=== PATIENT | female | born 2000 | race Caucasian/White ===

== ENCOUNTER 2021-02-22 06:00 | Outpatient (RCR) | payer MEDICAID, SELFPAY | END 2021-03-24 23:59 | disposition home or self-care (01) | LOC: MOT 06:00 | PROVIDERS: PCP Nurse Practitioner Family; Referring Provider Family Medicine; Visit Provider Family Medicine | DX: F84.0 Autistic disorder (principal); F98.4 Stereotyped movement disorders | CPT/HCPCS: 97165; 97530 ==

== ENCOUNTER → 2022-10-05 17:15 | Outpatient (BNVA) | payer MEDICAID, SELFPAY | PROVIDERS: Visit Provider Emergency Medicine | DX: J02.9 Acute pharyngitis, unspecified (principal); R50.9 Fever, unspecified; Z20.818 Contact with and (suspected) exposure to other bacterial communicable diseases | CPT/HCPCS: 87071; 87880 ==

== ENCOUNTER → 2024-05-20 10:24 | Outpatient (BNVA) | payer MEDICAID, SELFPAY | PROVIDERS: Visit Provider Nurse Practitioner | DX: K59.00 Constipation, unspecified (principal) | CPT/HCPCS: 74018 ==

== ENCOUNTER 2024-05-21 09:37 | Emergency (ER) | payer MEDICAID, SELFPAY ==
[2024-05-21 10:05] VITALS: BP 105/79; PULSE 80; RESP 16; TEMP 37.3; O2SAT 99; BMI 18.8
--- NOTE | 2024-05-21 11:32 | CT_ITS ---
WS: [id number] CT ABDOMEN PELVIS TECHNIQUE: Contrast-enhanced CT of the abdomen and pelvis with coronal and sagittal reformatted image s. CLINICAL INFORMATION: abd pain COMPARISON: None. DLP: 364.[address] scans at [facility] use at least one of these dose optimization techniques: automated e xposure control; mA and/or kV adjustment per patient size (includes targeted exams where dose is matc hed to clinical indication); or iterative reconstruction. FINDINGS: Diffuse dense constipation with colonic distention extending from the cecum to the rectosigmoid. Diff use distention of the rectosigmoid. No visualized colonic stricture. Mild proximal dilatation of smal l bowel with a few air-fluid levels. Pectus excavatum. Trace RIGHT pleural fluid. Bibasilar atelectas is. Normal liver. Normal portal vein and splenic vein. Normal spleen. Normal caliber abdominal aorta. Normal renal parenchymal enhancement. No hydronephrosis. Mild lumbar curve convex LEFT. CT/CT abdomen pelvis w con* [id number] IMPRESSION: 1. Diffuse marked dense pancolonic constipation extending from the cecum to th e rectosigmoid. 2. A few air-fluid levels small bowel in the mid abdomen. 3. Trace RIGHT pleural fluid. Slight bibasilar atelectasis. 4. No other acute findings.
--- NOTE | 2024-05-21 11:32 | W.ED.ABDPA2 ---
HPI - Abdominal Pain General: Chief Complaint: Abdominal Pain Stated Complaint: BM issues Time Seen by Provider: 05/21/24 09:46 History of Present Illness: 23-year-old nonverbal female presents emergency room with her guardians. She has been constipated lately they recently increased Risperdal and he noted worsening of constipation she always had some problems but usually not to this extent. She seems to be very uncomfortable he said they have tried lactulose they are prescribed she taken 5 doses with no results. She seems more bloated. She had a little low-grade fever when she arrived here but has not had significant fever at home. They have not noticed any other issues cough or apparent shortness of breath. She usually wears depends. Did not notice any foul-smelling urine. Associated Symptoms: Reports bloating; Denies fever(s) Related Data Home Medications Medication Instructions Recorded Confirmed cetirizine 10 mg capsule (All Day 10 mg PO DAILY 08/29/19 05/21/24 Allergy (cetirizine)) guanfacine 1 mg tablet,extended 1 mg PO BID 03/14/24 05/21/24 release 24 hr (Intuniv ER) oxcarbazepine 300 mg/5 mL (60 150 mg PO BID 03/14/24 05/21/24 mg/mL) oral suspension (Trileptal) medroxyprogesterone 150 mg/mL 150 mg IM .Q90D 05/21/24 05/21/24 intramuscular syringe mirtazapine 7.5 mg tablet 7.5 mg PO DAILY 05/21/24 05/21/24 multivitamin 1 tab PO DAILY 05/21/24 05/21/24 risperidone 1 mg tablet 1 mg PO BID 05/21/24 05/21/24 Previous Rx's Medication Instructions Recorded fexofenadine 60 mg-pseudoephedrine 1 tab PO Q12H PRN sinus symptoms 03/09/24 ER 120 mg tablet,ext.release,12 hr 14 days #30 tabs (Kathy-D 12 Hour) lactulose 10 gram/15 mL oral See Rx Instructions PO DAILY PRN 05/20/24 solution constipation #250 mL Allergies Allergy/AdvReac Type Severity Reaction Status Date / Time No Known Allergies Allergy Verified 05/21/24 10:15 Review of Systems General: Reports: ROS unobtainable due to mental status (Baseline nonverbal, minimal review of systems obtained from parents) Const: Denies: fever(s) Resp: Denies: dyspnea, non-productive cough or chest congestion GI: Reports: abdominal pain and bloating PFSH ED PFSH: Social History Smoking and tobacco/nicotine status: never used tobacco/nicotine Second hand smoke exposure: No Alcohol intake: never Substance/Drug Use: never Physical Exam HENMT: COMMON NORMALS: normocephalic, atraumatic and hearing grossly normal bilaterally HEAD & SCALP: normocephalic and atraumatic Resp: COMMON NORMALS: normal respiratory effort, No retractions, No use of accessory muscles and clear to auscultation bilaterally AUSCULTATION: clear to auscultation bilaterally Cardio: COMMON NORMALS: regular rate, regular rhythm and No murmurs present (Cardio) RATE: regular rate RHYTHM: regular rhythm GI: COMMON NORMALS: No hepatosplenomegaly present AUSCULTATION: Yes normoactive bowel sounds PALPATION: Yes Tenderness to palpation present (GI), No Guarding due to palpation present (GI) and Yes No hepatosplenomegaly present Extremity: COMMON NORMALS: normal to inspection, capillary refill normal, no clubbing, cyanosis or edema, no calf tenderness and no pedal edema Skin: COMMON NORMALS: no rashes or lesions noted GENERAL SKIN EXAM: no rashes or lesions noted Course Vital Signs: Vital signs: Vital Signs Temperature 99.2 F 05/21/24 10:05 Pulse Rate 72 05/21/24 17:17 Respiratory Rate 16 05/21/24 10:05 Blood Pressure 112/79 05/21/24 17:17 Pulse Oximetry 99 05/21/24 17:17 Oxygen Delivery Me thod Room Air 05/21/24 10:05 MDM - Abdominal Pain Medical Decision Making Patient with good results with the enema. She had a couple of bowel movements since and some large. Discussed with the caregivers will discharge her home can continue lactulose to further relieve the constipation. Recommend they wait till tomorrow to resume she is already had several doses and has been bloating likely those doses will continue to cause some stimulation and may continue to cause bowel movements through the evening if they find that it does not then they can resume the lactulose in the morning. Return if she has further problems follow-up with primary care Medical Records I reviewed the patient's medical records. Lab Data I reviewed the patient's lab results. 05/21/24 11:57 05/21/24 11:57 Labs/Radiology: Radiology Impressions Abdomen/Pelvis CT 05/21/24 11:32 IMPRESSION: 1. Diffuse marked dense pancolonic constipation extending from the cecum to the rectosigmoid. 2. A few air-fluid levels small bowel in the mid abdomen. 3. Trace RIGHT pleural fluid. Slight bibasilar atelectasis. 4. No other acute findings. Laboratory Results WBC 6.59 10^3/uL (3.29-11.43) 05/21/24 11:57 RBC 4.47 10^6/uL (3.85-5.65) 05/21/24 11:57 Hgb 13.20 g/dL (11.27-16.99) 05/21/24 11:57 Hct 39.5 % (36-47) 05/21/24 11:57 MCV 88.4 fl (85-98) 05/21/24 11:57 MCH 29.5 pg (27-33) 05/21/24 11:57 MCHC 33.4 g/dL (30-55) 05/21/24 11:57 RDW 13.0 % (12.1-15.1) 05/21/24 11:57 Plt Count 204 10^3/cmm (157-399) 05/21/24 11:57 MPV 10.2 fL (7.4-10.4) 05/21/24 11:57 Neut % (Auto) 51.0 % 05/21/24 11:57 Lymph % (Auto) 39.6 % 05/21/24 11:57 [place] % (Auto) 7.4 % 05/21/24 11:57 Eos % (Auto) 0.9 % 05/21/24 11:57 Baso % (Auto) 0.9 % 05/21/24 11:57 Neut # (Auto) 3.36 10^3/uL (1.8-7.7) 05/21/24 11:57 Lymph # (Auto) 2.6 10^3/uL (0.8-4.8) 05/21/24 11:57 [place] # (Auto) 0.5 10^3/uL (0.2-0.9) 05/21/24 11:57 Eos # (Auto) 0.1 10^3/uL (0.0-0.8) 05/21/24 11:57 Baso # (Auto) 0.1 10^3/uL (0.0-0.1) 05/21/24 11:57 Nucleated RBC % (auto) 0 % 05/21/24 11:57 Nucleated RBCs # 0.0 /100WBC 05/21/24 11:57 Sodium 139 mmol/L (136-145) 05/21/24 11:57 Potassium 4.4 mmol/L (3.5-5.1) 05/21/24 11:57 Chloride 107 mmol/L (98-107) 05/21/24 11:57 Carbon Dioxide 22 mmol/L (22-29) 05/21/24 11:57 Anion Gap 14.4 (5-19) 05/21/24 11:57 BUN 12 mg/dL (6-20) 05/21/24 11:57 Creatinine 0.5 mg/dL (0.5-0.9) 05/21/24 11:57 GFR Calculation 152.9 mL/min (90-130) H 05/21/24 11:57 Glucose 90 mg/dL (65-115) 05/21/24 11:57 Calculated Osmolality 287 mOsm/kg (285-295) 05/21/24 11:57 Calcium 9.0 mg/dL (8.5-10.5) 05/21/24 11:57 Total Bilirubin 0.3 mg/dL (0.15-1.2) 05/21/24 11:57 AST 11 U/L (0-32) 05/21/24 11:57 ALT 9 U/L (0-33) 05/21/24 11:57 Alkaline Phosphatase 46 U/L (35-105) 05/21/24 11:57 Total Protein 6.5 g/dL (6.6-8.7) L 05/21/24 11:57 Albumin 4.4 g/dL (3.5-5.2) 05/21/24 11:57 Globulin 2.1 g/dL (1.3-4.6) 05/21/24 11:57 Lipase 20 U/L (13-60) 05/21/24 11:57 Urine Color Yellow (Yellow) 05/21/24 13:27 Urine Appearance Clear (CLEAR) 05/21/24 13:27 Urine pH 6.5 (5-7) 05/21/24 13:27 Ur Specific [place] 1.032 (1.005-1.030) H 05/21/24 13:27 Urine Protein Negative (Negative) 05/21/24 13:27 Urine Glucose (UA) Negative (Normal) 05/21/24 13:27 Urine Ketones Trace (Negative) 05/21/24 13:27 Urine Blood Negative (Negative) 05/21/24 13:27 Urine Nitrate Negative (Negative) 05/21/24 13:27 Urine Bilirubin Negative (Negative) 05/21/24 13:27 Urine Urobilinogen 1.0 mg/dL (Negative) 05/21/24 13:27 Ur Leukocyte Esterase Negative (Negative) 05/21/24 13:27 Urine RBC 0-2 /hpf (0-2) 05/21/24 13:27 Urine WBC 0-5 /hpf (0-5) 05/21/24 13:27 Ur Squamous Epith Cells 0-5 /hpf (0-5) 05/21/24 13:27 Amorphous Sediment Not Reportable 05/21/24 13:27 Urine Bacteria None seen /hpf (NONE) 05/21/24 13:27 Hyaline Casts 3.71 /lpf 05/21/24 13:27 All radiology interpretation(s) finalized by discharge Discharge Plan Discharge Patient Disposition: Home Clinical Impression: Constipation Condition: Stable Prescriptions: No Action All Day Allergy (cetirizine) 10 mg capsule 10 mg PO DAILY fexofenadine-pseudoephedrine [Kathy-D 12 Hour] 60-120 mg tablet extended release 12 hr 1 tab PO Q12H PRN (Reason: sinus symptoms) 14 Days Qty: 30 0RF lactulose 10 gram/15 mL solution See Rx Instructions PO DAILY PRN (Reason: constipation) Qty: 250 0RF Rx Instructions: May give 15mls every 2 hours until she has a BM then discontinue guanfacine [Intuniv ER] 1 mg tablet extended release 24 hr 1 mg PO BID oxcarbazepine [Trileptal] 300 mg/5 mL (60 mg/mL) suspension 150 mg PO BID multivitamin Tablet 1 tab PO DAILY risperidone 1 mg tablet 1 mg PO BID medroxyprogesterone 150 mg/mL syringe 150 mg IM .Q90D mirtazapine 7.5 mg tablet 7.5 mg PO DAILY Discharge Orders: Discharge ED (Routine); Ordered 05/21/24 Ordered By: Vinay Khanna Discharge Diet: Full LIquid Discharge Activity: Resume usual activity Patient Instructions: Constipation (ED), Opioid Safety, Pain Management Activity Restrictions/Additional Instructions: Thank you for choosing [facility] for your healthcare needs today. It is very important that you follow up as instructed or that you return to the Emergency Department should you have concerns or if your condition changes or worsens in any way. You are seen today for constipation. He did get some improvement with enema. Recommend you continue using the lactulose the medicine will probably be more effective after the enema today. Coding Level of Care Code ED Occupational Therapy Director for [facility] Dong
[2024-05-21 12:26] LABS: Basophils # 0.1 10^3/uL (0.0-0.1); Basophils % 0.9 %; Eosinophils # 0.1 10^3/uL (0.0-0.8); Eosinophils % 0.9 %; Hematocrit 39.5 % (36-47); Lymphocytes # 2.6 10^3/uL (0.8-4.8); Lymphocytes % 39.6 %; Mean Corpuscular HGB Conc 33.4 g/dL (30-55); Mean Corpuscular Hemoglobin 29.5 pg (27-33); Mean Corpuscular Volume 88.4 fl (85-98); Mean Platelet Volume 10.2 fL (7.4-10.4); Monocytes # 0.5 10^3/uL (0.2-0.9); Monocytes % 7.4 %; Neutrophils # 3.36 10^3/uL (1.8-7.7); Nucleated Red Blood Cells % 0 %; Platelet Count 204 10^3/cmm (157-399); Red Blood Count 4.47 10^6/uL (3.85-5.65); White Blood Count 6.59 10^3/uL (3.29-11.43)
[2024-05-21 12:36] LABS: Alanine Aminotransferase 9 U/L (0-33); Albumin Level 4.4 g/dL (3.5-5.2); Alkaline Phosphatase 46 U/L (35-105); Anion Gap 14.4 (5-19); Aspartate Amino Transferase 11 U/L (0-32); Blood Urea Nitrogen 12 mg/dL (6-20); Carbon Dioxide 22 mmol/L (22-29); Chloride 107 mmol/L (98-107); Creatinine Clr Calc Pharmacy 134.8664; Globulin 2.1 g/dL (1.3-4.6); Glomerular Filtration Rate 152.9 mL/min (90-130); Glucose 90 mg/dL (65-115); Lipase 20 U/L (13-60); Osmolality Calculated 287 mOsm/kg (285-295); Potassium 4.4 mmol/L (3.5-5.1); Sodium 139 mmol/L (136-145); Total Bilirubin 0.3 mg/dL (0.15-1.2); Total Protein 6.5 g/dL (6.6-8.7)
[2024-05-21 13:08] VITALS: BP 101/69; PULSE 60; O2SAT 100
[2024-05-21] MEDS: iohexol 350 mg/mL 500 mL Btl (per mL) IV (13:13)
[2024-05-21 13:39] LABS: Bilirubin Urine Negative (Negative); Blood Urine Negative (Negative); Glucose Urine UA Negative (Normal); Ketones Urine Trace (Negative); Leukocyte Esterase Urine Negative (Negative); Nitrate Urine Negative (Negative); Protein Urine Negative (Negative); Urine Appearance Clear (CLEAR); Urine Color Yellow (Yellow); pH Urine 6.5 (5-7)
[2024-05-21 13:41] LABS: Add Urine Microscopic? YES; Bacteria Urine None Seen /hpf; Hyaline Casts Urine 3.71 /lpf; RBC Urine 0-2 /hpf (0-2); Squamous Epithelial Cell Urine 0-5 /hpf (0-5); WBC Urine 0-5 /hpf (0-5)
[2024-05-21 14:11] LABS: Specific Gravity, Urine 1.032 (1.005-1.030)
[2024-05-21 14:14] LABS: Add Urine Culture? No
--- NOTE | 2024-05-21 17:00 | PC.NURSE ---
pt refused to keep monitor on during visit, pt non-verbal. see discharge vitals
[2024-05-21 17:17] VITALS: BP 112/79; PULSE 72; O2SAT 99
== END 2024-05-21 17:18 | disposition home or self-care (01) ==
PROVIDERS: Emergency Provider Family Medicine
DX: K59.00 Constipation, unspecified (principal)
CPT/HCPCS: 74177; 80053; 81001; 83690; 85025; 99285

== ENCOUNTER 2024-05-27 21:58 | Emergency (ER) | payer MEDICAID, SELFPAY ==
[2024-05-27 22:10] VITALS: BP 105/69; PULSE 92; RESP 16; O2SAT 98; BMI 18.8
--- NOTE | 2024-05-27 22:51 | XRR_ITS ---
PROCEDURE INFORMATION: Exam: XR Abdomen Exam date and time: 05/27/2024 11:06 PM Age: 23 years old Clinical indication: Abdominal tenderness and bloating; Additional info: Abd pain constipation TECHNIQUE: Imaging protocol: Radiologic exam of the abdomen. Views: Frontal supine view of the abdomen. 1 View. COMPARISON: CT abdomen pelvis w con* [id number] 05/21/2024 12:52 PM FINDINGS: Gastrointestinal tract: Large amount of fecal material is again seen throughout the visualized colon. No definite evidence of ileus or obstruction. Intraperitoneal space: The upper abdomen is partially excluded from the field of view. Bones/joints: Unremarkable. XR/XR abdomen 1V* [id number] IMPRESSION: Ongoing large fecal material throughout the colon.
--- NOTE | 2024-05-27 22:57 | ED_ITS ---
Documented by User: THERESA Ramírez 05/28/24 17:15 HPI - Abdominal Pain 2 General: Chief Complaint: Abdominal Pain Stated Complaint: constipated just liquid Time Seen by Provider: 05/27/24 22:56 History of Present Illness: 23-year-old female with a history of ASD was brought in by father and caregiver for concerns of constipation. Patient was seen last week on the for constipation. Patient was given 1 enema with a small amount or return. Patient then has been continued with MiraLAX and a laxative. Father reports that child's been having some watery stools but with no hard stool out. Associated Symptoms: Reports constipation and nausea Related Data Home Medications Medication Instructions Recorded Confirmed cetirizine 10 mg capsule (All Day 10 mg PO DAILY 08/29/19 05/21/24 Allergy (cetirizine)) guanfacine 1 mg tablet,extended 1 mg PO BID 03/14/24 05/21/24 release 24 hr (Intuniv ER) oxcarbazepine 300 mg/5 mL (60 150 mg PO BID 03/14/24 05/21/24 mg/mL) oral suspension (Trileptal) medroxyprogesterone 150 mg/mL 150 mg IM .Q90D 05/21/24 05/21/24 intramuscular syringe mirtazapine 7.5 mg tablet 7.5 mg PO DAILY 05/21/24 05/21/24 multivitamin 1 tab PO DAILY 05/21/24 05/21/24 risperidone 1 mg tablet 1 mg PO BID 05/21/24 05/21/24 Previous Rx's Medication Instructions Recorded fexofenadine 60 mg-pseudoephedrine 1 tab PO Q12H PRN sinus symptoms 03/09/24 ER 120 mg tablet,ext.release,12 hr 14 days #30 tabs (Kathy-D 12 Hour) lactulose 10 gram/15 mL oral See Rx Instructions PO DAILY PRN 05/20/24 solution constipation #250 mL polyethylene glycol 3350 17 17 g PO .Every hour PRN laxative 05/28/24 gram/dose oral powder (Miralax) effect #850 grams Allergies Allergy/AdvReac Type Severity Reaction Status Date / Time No Known Allergies Allergy Verified 05/21/24 10:15 Review of Systems 2 General: Reports: 10 or more systems reviewed and unremarkable except in HPI and below GI: Reports: nausea and constipation PFSH ED 2 PFSH: Social History Smoking and tobacco/nicotine status: never used tobacco/nicotine Second hand smoke exposure: No Alcohol intake: never Substance/Drug Use: never Physical Exam 2 Const: COMMON NORMALS: alert HENMT: COMMON NORMALS: normocephalic HEAD & SCALP: normocephalic Neck/C-Spine: COMMON NORMALS: full ROM Resp: COMMON NORMALS: normal respiratory effort and clear to auscultation bilaterally AUSCULTATION: clear to auscultation bilaterally Cardio: COMMON NORMALS: regular rate RATE: regular rate GI: PALPATION: Yes Firmness to palpation present (GI), No Tenderness to palpation present (GI) and No Guarding due to palpation present (GI) : COMMON NORMALS: Yes no CVA tenderness BLADDER/KIDNEY EXAM: Yes no CVA tenderness Back/Pelvis: COMMON NORMALS: no CVA tenderness Extremity: COMMON NORMALS: normal to inspection Neuro: SENSORIUM/ORIENTATION: Yes alert Skin: COMMON NORMALS: turgor normal GENERAL SKIN EXAM: turgor normal Course 2 Vital Signs: Vital signs: Vital Signs Pulse Rate 82 05/28/24 03:00 Respiratory Rate 14 05/28/24 03:00 Blood Pressure 124/84 05/28/24 03:00 Pulse Oximetry 98 05/28/24 03:00 Oxygen Delivery Me thod Room Air 05/27/24 22:10 MDM - Abdominal Pain Medical Decision Making Patient was brought in by father for concerns of watery dark stool leakage from the rectum. Patient has not had a bowel movement since having the enema last week. Vital reports to continue with MiraLAX and a daily laxative with no relief of constipation. Father reports that oral intake is decreased and patient has had a couple episodes of emesis and more belching. Differential diagnosis includes bowel obstruction, constipation, fecal impaction. X-ray noted continued ongoing fecal material in the colon. Patient was given 1 L of IV fluids for possible dehydration. CBC, CMP was unremarkable. Reviewed exam with father with recommendation for enemas until clear. Father reported understanding agreed with plan. 0100, reviewed patient with Dr. Matias who will assume care of patient with plan to discharge after enemas. Lab Data 05/27/24 23:45 05/27/24 23:45 Labs/Radiology: Radiology Impressions Abdomen X-Ray 05/28/24 03:33 IMPRESSION: Significantly improved rectal, sigmoid and distal descending colon fecal impaction. Laboratory Results WBC 9.64 10^3/uL (3.29-11.43) 05/27/24 23:45 RBC 4.54 10^6/uL (3.85-5.65) 05/27/24 23:45 Hgb 13.20 g/dL (11.27-16.99) 05/27/24 23:45 Hct 41.3 % (36-47) 05/27/24 23:45 MCV 91.0 fl (85-98) 05/27/24 23:45 MCH 29.1 pg (27-33) 05/27/24 23:45 MCHC 32.0 g/dL (30-55) 05/27/24 23:45 RDW 13.0 % (12.1-15.1) 05/27/24 23:45 Plt Count 226 10^3/cmm (157-399) 05/27/24 23:45 MPV 10.1 fL (7.4-10.4) 05/27/24 23:45 Neut % (Auto) 52.5 % 05/27/24 23:45 Lymph % (Auto) 36.4 % 05/27/24 23:45 [place] % (Auto) 9.3 % 05/27/24 23:45 Eos % (Auto) 0.9 % 05/27/24 23:45 Baso % (Auto) 0.7 % 05/27/24 23:45 Neut # (Auto) 5.05 10^3/uL (1.8-7.7) 05/27/24 23:45 Lymph # (Auto) 3.5 10^3/uL (0.8-4.8) 05/27/24 23:45 [place] # (Auto) 0.9 10^3/uL (0.2-0.9) 05/27/24 23:45 Eos # (Auto) 0.1 10^3/uL (0.0-0.8) 05/27/24 23:45 Baso # (Auto) 0.1 10^3/uL (0.0-0.1) 05/27/24 23:45 Nucleated RBC % (auto) 0 % 05/27/24 23:45 Nucleated RBCs # 0.0 /100WBC 05/27/24 23:45 Sodium 143 mmol/L (136-145) 05/27/24 23:45 Potassium 3.8 mmol/L (3.5-5.1) 05/27/24 23:45 Chloride 108 mmol/L (98-107) H 05/27/24 23:45 Carbon Dioxide 23 mmol/L (22-29) 05/27/24 23:45 Anion Gap 15.8 (5-19) 05/27/24 23:45 BUN 14 mg/dL (6-20) 05/27/24 23:45 Creatinine 0.6 mg/dL (0.5-0.9) 05/27/24 23:45 GFR Calculation 123.9 mL/min (90-130) 05/27/24 23:45 Glucose 96 mg/dL (65-115) 05/27/24 23:45 Calculated Osmolality 296 mOsm/kg (285-295) H 05/27/24 23:45 Calcium 9.2 mg/dL (8.5-10.5) 05/27/24 23:45 Total Bilirubin 0.2 mg/dL (0.15-1.2) 05/27/24 23:45 AST 10 U/L (0-32) 05/27/24 23:45 ALT 8 U/L (0-33) 05/27/24 23:45 Alkaline Phosphatase 55 U/L (35-105) 05/27/24 23:45 Total Protein 6.9 g/dL (6.6-8.7) 05/27/24 23:45 Albumin 4.6 g/dL (3.5-5.2) 05/27/24 23:45 Globulin 2.3 g/dL (1.3-4.6) 05/27/24 23:45 All radiology interpretation(s) finalized by discharge Discharge Plan Discharge Patient Disposition: Home Clinical Impression: Constipation Condition: Stable Prescriptions: New polyethylene glycol 3350 [Miralax] 17 gram/dose powder 17 g PO .Every hour PRN (Reason: laxative effect) Qty: 850 0RF No Action All Day Allergy (cetirizine) 10 mg capsule 10 mg PO DAILY fexofenadine-pseudoephedrine [Kathy-D 12 Hour] 60-120 mg tablet extended release 12 hr 1 tab PO Q12H PRN (Reason: sinus symptoms) 14 Days Qty: 30 0RF lactulose 10 gram/15 mL solution See Rx Instructions PO DAILY PRN (Reason: constipation) Qty: 250 0RF Rx Instructions: May give 15mls every 2 hours until she has a BM then discontinue guanfacine [Intuniv ER] 1 mg tablet extended release 24 hr 1 mg PO BID oxcarbazepine [Trileptal] 300 mg/5 mL (60 mg/mL) suspension 150 mg PO BID multivitamin Tablet 1 tab PO DAILY risperidone 1 mg tablet 1 mg PO BID medroxyprogesterone 150 mg/mL syringe 150 mg IM .Q90D mirtazapine 7.5 mg tablet 7.5 mg PO DAILY Discharge Orders: Discharge ED (Routine); Ordered 05/28/24 Ordered By: Jacky Matias Patient Instructions: Polyethylene Glycol 3350 (By mouth) (Miralax, Healthylax..., Constipation (ED), High Fiber Diet (ED), Fleet Enema (ED) Activity Restrictions/Additional Instructions: A prescription for MiraLAX has been sent to your pharmacy. Please take 1 dose in 8 ounces of water every hour until adequate results. You can take this on top of the lactulose that was called to the pharmacy during your last visit. Stand Alone Forms: Work/School Release Coding Level of Care Code ED Cylinder Worker for Chg Fwd Documented by User: Jacky Matias DO 05/28/24 03:19 HPI - Abdominal Pain 2 General: Chief Complaint: Abdominal Pain Stated Complaint: constipated just liquid Time Seen by Provider: 05/27/24 22:56 Related Data Home Medications Medication Instructions Recorded Confirmed cetirizine 10 mg capsule (All Day 10 mg PO DAILY 08/29/19 05/21/24 Allergy (cetirizine)) guanfacine 1 mg tablet,extended 1 mg PO BID 03/14/24 05/21/24 release 24 hr (Intuniv ER) oxcarbazepine 300 mg/5 mL (60 150 mg PO BID 03/14/24 05/21/24 mg/mL) oral suspension (Trileptal) medroxyprogesterone 150 mg/mL 150 mg IM .Q90D 05/21/24 05/21/24 intramuscular syringe mirtazapine 7.5 mg tablet 7.5 mg PO DAILY 05/21/24 05/21/24 multivitamin 1 tab PO DAILY 05/21/24 05/21/24 risperidone 1 mg tablet 1 mg PO BID 05/21/24 05/21/24 Previous Rx's Medication Instructions Recorded fexofenadine 60 mg-pseudoephedrine 1 tab PO Q12H PRN sinus symptoms 03/09/24 ER 120 mg tablet,ext.release,12 hr 14 days #30 tabs (Kathy-D 12 Hour) lactulose 10 gram/15 mL oral See Rx Instructions PO DAILY PRN 05/20/24 solution constipation #250 mL polyethylene glycol 3350 17 17 g PO .Every hour PRN laxative 05/28/24 gram/dose oral powder (Miralax) effect #850 grams Allergies Allergy/AdvReac Type Severity Reaction Status Date / Time No Known Allergies Allergy Verified 05/21/24 10:15 [facility] ED 2 PFSH: Social History Smoking and tobacco/nicotine status: never used tobacco/nicotine Second hand smoke exposure: No Alcohol intake: never Substance/Drug Use: never Course 2 Vital Signs: Vital signs: Vital Signs Pulse Rate 82 05/28/24 03:00 Respiratory Rate 14 05/28/24 03:00 Blood Pressure 124/84 05/28/24 03:00 Pulse Oximetry 98 05/28/24 03:00 Oxygen Delivery Me thod Room Air 05/27/24 22:10 MDM - Abdominal Pain Medical Decision Making Patient was brought in by father for concerns of watery dark stool leakage from the rectum. Patient has not had a bowel movement since having the enema last week. Vital reports to continue with MiraLAX and a daily laxative with no relief of constipation. Father reports that oral intake is decreased and patient has had a couple episodes of emesis and more belching. Differential diagnosis includes bowel obstruction, constipation, fecal impaction. X-ray noted continued ongoing fecal material in the colon. Patient was given 1 L of IV fluids for possible dehydration. CBC, CMP was unremarkable. Reviewed exam with father with recommendation for enemas until clear. Father reported understanding agreed with plan. 0100, reviewed patient with Dr. Matias who will assume care of patient with plan to discharge after enemas. Care transitioned over to myself at shift change, patient had multiple enemas results. We will adjust patient's constipation medicine and discharged home. Lab Data 05/27/24 23:45 05/27/24 23:45 Labs/Radiology: Radiology Impressions Abdomen X-Ray 05/28/24 03:33 IMPRESSION: Significantly improved rectal, sigmoid and distal descending colon fecal impaction. Laboratory Results WBC 9.64 10^3/uL (3.29-11.43) 05/27/24 23:45 RBC 4.54 10^6/uL (3.85-5.65) 05/27/24 23:45 Hgb 13.20 g/dL (11.27-16.99) 05/27/24 23:45 Hct 41.3 % (36-47) 05/27/24 23:45 MCV 91.0 fl (85-98) 05/27/24 23:45 MCH 29.1 pg (27-33) 05/27/24 23:45 MCHC 32.0 g/dL (30-55) 05/27/24 23:45 RDW 13.0 % (12.1-15.1) 05/27/24 23:45 Plt Count 226 10^3/cmm (157-399) 05/27/24 23:45 MPV 10.1 fL (7.4-10.4) 05/27/24 23:45 Neut % (Auto) 52.5 % 05/27/24 23:45 Lymph % (Auto) 36.4 % 05/27/24 23:45 [place] % (Auto) 9.3 % 05/27/24 23:45 Eos % (Auto) 0.9 % 05/27/24 23:45 Baso % (Auto) 0.7 % 05/27/24 23:45 Neut # (Auto) 5.05 10^3/uL (1.8-7.7) 05/27/24 23:45 Lymph # (Auto) 3.5 10^3/uL (0.8-4.8) 05/27/24 23:45 [place] # (Auto) 0.9 10^3/uL (0.2-0.9) 05/27/24 23:45 Eos # (Auto) 0.1 10^3/uL (0.0-0.8) 05/27/24 23:45 Baso # (Auto) 0.1 10^3/uL (0.0-0.1) 05/27/24 23:45 Nucleated RBC % (auto) 0 % 05/27/24 23:45 Nucleated RBCs # 0.0 /100WBC 05/27/24 23:45 Sodium 143 mmol/L (136-145) 05/27/24 23:45 Potassium 3.8 mmol/L (3.5-5.1) 05/27/24 23:45 Chloride 108 mmol/L (98-107) H 05/27/24 23:45 Carbon Dioxide 23 mmol/L (22-29) 05/27/24 23:45 Anion Gap 15.8 (5-19) 05/27/24 23:45 BUN 14 mg/dL (6-20) 05/27/24 23:45 Creatinine 0.6 mg/dL (0.5-0.9) 05/27/24 23:45 GFR Calculation 123.9 mL/min (90-130) 05/27/24 23:45 Glucose 96 mg/dL (65-115) 05/27/24 23:45 Calculated Osmolality 296 mOsm/kg (285-295) H 05/27/24 23:45 Calcium 9.2 mg/dL (8.5-10.5) 05/27/24 23:45 Total Bilirubin 0.2 mg/dL (0.15-1.2) 05/27/24 23:45 AST 10 U/L (0-32) 05/27/24 23:45 ALT 8 U/L (0-33) 05/27/24 23:45 Alkaline Phosphatase 55 U/L (35-105) 05/27/24 23:45 Total Protein 6.9 g/dL (6.6-8.7) 05/27/24 23:45 Albumin 4.6 g/dL (3.5-5.2) 05/27/24 23:45 Globulin 2.3 g/dL (1.3-4.6) 05/27/24 23:45 Discharge Plan Discharge Patient Disposition: Home Clinical Impression: Constipation Condition: Stable Prescriptions: New polyethylene glycol 3350 [Miralax] 17 gram/dose powder 17 g PO .Every hour PRN (Reason: laxative effect) Qty: 850 0RF No Action All Day Allergy (cetirizine) 10 mg capsule 10 mg PO DAILY fexofenadine-pseudoephedrine [Kathy-D 12 Hour] 60-120 mg tablet extended release 12 hr 1 tab PO Q12H PRN (Reason: sinus symptoms) 14 Days Qty: 30 0RF lactulose 10 gram/15 mL solution See Rx Instructions PO DAILY PRN (Reason: constipation) Qty: 250 0RF Rx Instructions: May give 15mls every 2 hours until she has a BM then discontinue guanfacine [Intuniv ER] 1 mg tablet extended release 24 hr 1 mg PO BID oxcarbazepine [Trileptal] 300 mg/5 mL (60 mg/mL) suspension 150 mg PO BID multivitamin Tablet 1 tab PO DAILY risperidone 1 mg tablet 1 mg PO BID medroxyprogesterone 150 mg/mL syringe 150 mg IM .Q90D mirtazapine 7.5 mg tablet 7.5 mg PO DAILY Discharge Orders: Discharge ED (Routine); Ordered 05/28/24 Ordered By: Jacky Matias Patient Instructions: Polyethylene Glycol 3350 (By mouth) (Miralax, Healthylax..., Constipation (ED), High Fiber Diet (ED), Fleet Enema (ED) Activity Restrictions/Additional Instructions: A prescription for MiraLAX has been sent to your pharmacy. Please take 1 dose in 8 ounces of water every hour until adequate results. You can take this on top of the lactulose that was called to the pharmacy during your last visit. Stand Alone Forms: Work/School Release Coding Level of Care Code ED Cylinder Worker for Ryan Dong
[2024-05-27 23:24] VITALS: BP 143/91; PULSE 90; RESP 16; O2SAT 98
[2024-05-27] MEDS: lactated ringers 1,000 ML 999 ML IV (23:55)
[2024-05-27 23:58] LABS: Basophils # 0.1 10^3/uL (0.0-0.1); Basophils % 0.7 %; Eosinophils # 0.1 10^3/uL (0.0-0.8); Eosinophils % 0.9 %; Hematocrit 41.3 % (36-47); Lymphocytes # 3.5 10^3/uL (0.8-4.8); Lymphocytes % 36.4 %; Mean Corpuscular Hemoglobin 29.1 pg (27-33); Mean Platelet Volume 10.1 fL (7.4-10.4); Monocytes # 0.9 10^3/uL (0.2-0.9); Monocytes % 9.3 %; Neutrophils # 5.05 10^3/uL (1.8-7.7); Neutrophils % 52.5 %; Nucleated Red Blood Cells % 0 %; Platelet Count 226 10^3/cmm (157-399); Red Blood Count 4.54 10^6/uL (3.85-5.65); White Blood Count 9.64 10^3/uL (3.29-11.43)
[2024-05-28 00:21] LABS: Alanine Aminotransferase 8 U/L (0-33); Albumin Level 4.6 g/dL (3.5-5.2); Alkaline Phosphatase 55 U/L (35-105); Anion Gap 15.8 (5-19); Aspartate Amino Transferase 10 U/L (0-32); Blood Urea Nitrogen 14 mg/dL (6-20); Calcium 9.2 mg/dL (8.5-10.5); Carbon Dioxide 23 mmol/L (22-29); Chloride 108 mmol/L (98-107); Globulin 2.3 g/dL (1.3-4.6); Glomerular Filtration Rate 123.9 mL/min (90-130); Glucose 96 mg/dL (65-115); Osmolality Calculated 296 mOsm/kg (285-295); Potassium 3.8 mmol/L (3.5-5.1); Sodium 143 mmol/L (136-145); Total Bilirubin 0.2 mg/dL (0.15-1.2); Total Protein 6.9 g/dL (6.6-8.7)
[2024-05-28 01:00] VITALS: BP 119/87; PULSE 85; RESP 16; O2SAT 99
[2024-05-28 03:00] VITALS: BP 124/84; PULSE 82; RESP 14; O2SAT 98
[2024-05-28] MEDS: mineral oil ENEMA 133 mL PR (03:15)
--- NOTE | 2024-05-28 03:33 | XRR_ITS ---
PROCEDURE INFORMATION: Exam: XR Abdomen Exam date and time: 05/28/2024 3:50 AM Age: 23 years old Clinical indication: Abdominal tenderness and constipation; Additional info: Constipation, post enemas TECHNIQUE: Imaging protocol: Radiologic exam of the abdomen. Views: Frontal supine view of the abdomen. 1 View. COMPARISON: CR (ABDOMEN, ) 05/27/2024 11:06 PM FINDINGS: Gastrointestinal tract: Significantly improved rectal, sigmoid and distal descending colon fecal impaction. Diffuse stool seen within the remainder of the colon. Bones/joints: Unremarkable. XR/XR abdomen 1V* [id number] IMPRESSION: Significantly improved rectal, sigmoid and distal descending colon fecal impaction.
== END 2024-05-28 05:14 | disposition home or self-care (01) ==
PROVIDERS: Emergency Provider Nurse Practitioner Family
DX: K59.00 Constipation, unspecified (principal)
CPT/HCPCS: 74018; 80053; 85025; 96360; 96361; 99284; J7120

== ENCOUNTER → 2025-03-08 08:11 | Outpatient (BNVA) | payer MEDICAID, SELFPAY | PROVIDERS: Referring Provider Family Medicine; Visit Provider Specialist | DX: R56.9 Unspecified convulsions (principal); G81.94 Hemiplegia, unspecified affecting left nondominant side; F84.0 Autistic disorder; K59.01 Slow transit constipation | CPT/HCPCS: 99204 ==

== ENCOUNTER 2025-03-14 08:07 | Outpatient (CLI) | payer MEDICAID, SELFPAY ==
--- NOTE | 2025-03-14 08:00 | MR_ITS ---
WS: [id number] MRI HEAD WITHOUT CONTRAST TECHNIQUE: Sagittal T1, T2 axial, T2 axial FLAIR, axial and coronal T1 images, axial susceptibility weighted imaging, axial diffusion weighted images, and coronal T2 images were obtained. CLINICAL INFORMATION: R56.9 - Unspecified convulsions COMPARISON: None. FINDINGS: No evidence of restricted diffusion to suggest acute ischemia. No suspicious intracranial signal abnormalities. Moderate parenchymal volume loss. Normal posterior fossa. Normal vascular flow voids at the skull base. No extra-axial fluid collections. No evidence of mass or mass effect. Retention cyst RIGHT maxillary sinus measuring 2.1 x 1.4 cm. No hemosiderin on the susceptibly weighted images. Moderate asymmetric atrophy RIGHT mesial temporal lobe and hippocampal formation. No signal abnormalities. LEFT temporal lobe and hippocampal formation has a more normal appearance. MR/MR head wo con* [id number] IMPRESSION: 1. No evidence of restricted diffusion to suggest acute ischemia. 2. No suspicious intracranial signal abnormalities. Moderate parenchymal volum e loss. 3. No hemosiderin on susceptibility-weighted images. 4. Moderate asymmetric atrophy RIGHT mesial temporal lobe hippocampal formatio n. No signal abnormalities. More normal appearing LEFT mesial temporal lobe.
== END 2025-03-14 08:08 | disposition home or self-care (01) ==
PROVIDERS: Visit Provider Specialist
DX: R56.9 Unspecified convulsions (principal); G93.89 Other specified disorders of brain
CPT/HCPCS: 70551

== ENCOUNTER → 2025-04-29 11:32 | Outpatient (BNVA) | payer MEDICAID, SELFPAY | PROVIDERS: Referring Provider Specialist; Visit Provider Specialist | DX: R56.9 Unspecified convulsions (principal); F84.0 Autistic disorder; G81.94 Hemiplegia, unspecified affecting left nondominant side | CPT/HCPCS: 95816; 95819 ==

== ENCOUNTER → 2025-06-07 08:33 | Outpatient (BNVA) | payer MEDICAID, SELFPAY | PROVIDERS: Referring Provider Family Medicine; Visit Provider Specialist | DX: R56.9 Unspecified convulsions (principal) | CPT/HCPCS: 99214 ==